=== PATIENT | female | born 1975 | race Two or more races ===

== ENCOUNTER 2024-06-19 19:36 | Emergency (ER) | payer OTHER ==
[~2024-06-19] VITALS: Ht 165.1 cm; Wt 74.8 kg
[2024-06-19 21:31] LABS: HEMATOCRIT 36.8 % (36.0-45.00); HEMOGLOBIN 12.8 g/dL (12.0-15.00); MEAN CORPUSCULAR HEMOGLOBIN 33.8 pg (27.00-32.0); MEAN CORPUSCULAR HGB CONC 34.8 g/dl (32.0-36.0); PLATELET COUNT 218 K/uL (150-450); RED BLOOD COUNT 3.79 M/uL (4.00-6.00); RED CELL DISTRIBUTION WIDTH 13.8 % (11.5-14.5)
[2024-06-19 21:55] LABS: CALCIUM 8.7 mg/dL (8.5-10.1); CREATININE SERUM 0.72 mg/dL (0.55-1.02); GFR 86.09; POTASSIUM 4.05 mEq/L (3.5-5.1)
[2024-06-19] MEDS ORDERED: KETOROLAC TROMETHAMINE 30 MG VIAL IM STA (22:02)
[2024-06-19] MEDS ORDERED: KETOROLAC TROMETHAMINE 30 MG VIAL ONE (22:11)
== END 2024-06-19 22:20 | disposition home or self-care (01) ==
LOC: ER 19:38
PROVIDERS: General Practice
DX: M94.0 Chondrocostal junction syndrome [Tietze] (principal)

== ENCOUNTER 2024-06-22 12:19 | Emergency (ER) | payer OTHER ==
[~2024-06-22] VITALS: Ht 167.6 cm; Wt 751.1 kg
[2024-06-22] MEDS ORDERED: 0.9 % SODIUM CHLORIDE 500 ML IV STA (15:40)
[2024-06-22] MEDS ORDERED: KETOROLAC TROMETHAMINE 15 MG VIAL IV STA (15:40)
[2024-06-22] MEDS ORDERED: ORPHENADRINE CITRATE 30 MG/ML AMPUL IV STA (15:41)
[2024-06-22] MEDS ORDERED: METHYLPREDNISOLONE SOD SUCC 125 MG VIAL IV STA (15:41)
[2024-06-22 16:26] LABS: HEMATOCRIT 38.9 % (36.0-45.00); HEMOGLOBIN 12.9 g/dL (12.0-15.00); MEAN CELL VOLUME 99.2 fL (80.00-100.00); MEAN CORPUSCULAR HEMOGLOBIN 32.9 pg (27.00-32.0); MEAN CORPUSCULAR HGB CONC 33.2 g/dl (32.0-36.0); PLATELET COUNT 223 K/uL (150-450); RED BLOOD COUNT 3.93 M/uL (4.00-6.00); RED CELL DISTRIBUTION WIDTH 13.5 % (11.5-14.5)
[2024-06-22] MEDS ORDERED: PROMETHAZINE HCL 25 MG/ML AMPUL IM STA (18:47)
[2024-06-22] MEDS ORDERED: MEPERIDINE HCL 25 MG/ML AMPUL IM STA (18:47)
[2024-06-22] MEDS ORDERED: MORPHINE SULFATE 4 MG/ML CARTRIDGE IV STA (18:48)
== END 2024-06-22 21:05 | disposition home or self-care (01) ==
LOC: ER 12:22
PROVIDERS: Emergency Medicine
DX: M94.0 Chondrocostal junction syndrome [Tietze] (principal); M54.16 Radiculopathy, lumbar region